=== PATIENT | female | born 1950 | race Caucasian/White ===

== ENCOUNTER → 2018-01-28 | Day surgery (SDC) | payer MEDICARE ==
[~2018-01-28] MED LIST: ALPR0.5T3 PO; ASPI1TAB57 PO; ASPI81TA11 PO; C 50TAB PO; CALC-179 PO; CYCL-36 PO; DAILTAB38 PO; GABA600T PO; IBUP1TAB7 PO; LIDOCAINE HCL 1% 30 ML VIAL INFIL ONE; LORT5TAB PO; NEUR600T PO; SODIUM CHLORIDE 0.9% 10 ML VIAL ONE; TAB-TAB PO; TRIAMCINOLONE ACETONIDE 40 MG/ML VIAL NERV BLOCK ONE; VITA-142 PO; VITA200C3 PO; VITA500S PO; XANA0.5T PO; methylPREDNISolone ACETATE 80 MG/ML VIAL ONE
--- NOTE | 2018-01-28 08:08 | M6 ---
cc: Raciel Larry MD DATE: 01/28/2018 PROCEDURE PERFORMED: Fluoroscopically guided L5-S1 intralaminar epidural steroid injection. History and physical was completed and signed. Consent was signed. Procedure site was marked. Medications were listed and reconciled. Pain score was recorded. Allergies were noted. Time out was taken. Fluoroscopy time was recorded where applicable. Sedation was administered or directed by Dr. Larry. The patient was given oxygen. The patient was monitored by a registered nurse. Total procedure time was greater than 15 minutes. DESCRIPTION: Blood pressure cuff, pulse oximeter and EKG were applied. The patient was placed in the prone position on the Alex table. Her back was prepped with alcohol and 10% Betadine solution and draped with sterile drapes. Fluoroscopy was used to visualize the L5-S1 interlaminar space. The skin was infiltrated with 1% Xylocaine, using a 27-gauge needle. Then, a 3-1/2 inch, 18-gauge Scott needle was advanced using fluoroscopic guidance and the loss of resistance technique into the epidural space at L5-S1, slightly to the left of the midline. There was negative aspiration for blood or any other type of fluid and the patient was given 10 mL of 0.5% Xylocaine and 80 mg of Depo-Medrol. During the injection the patient did feel radiating pain down her left leg in the same distribution as her usual pain. This subsided very quickly following the injection. The patient then was taken to the recovery room with stable vital signs, neurologically intact. Raciel Larry MD [facility]/TL , 07:49 AM , 08:07 AM
== END | disposition home or self-care (01) ==
LOC: PHSDC 06:40
PROVIDERS: ATTEND Pain Medicine Interventional Pain Medicine
DX: M54.5 Low back pain (principal)
CPT/HCPCS: 62323; J1040; J3301